=== PATIENT | male | born 1945 | race Hispanic/Latino ===

== ENCOUNTER → 2023-08-11 | Day surgery (SDC) | payer MEDICARE ==
[2023-08-09 09:06] LABS: BASOPHILS # (AUTO) 0.1 (0.0-0.1); EOSINOPHILS # (AUTO) 0.3 (0.0-0.4); EOSINOPHILS % 5.4 % (0.0-6.0); HEMATOCRIT 41.4 % (38.2-49.6); HEMOGLOBIN 14.1 g/dL (14.0-18.0); LYMPHOCYTES # (AUTO) 1.7 (1.0-3.2); LYMPHOCYTES % 33.3 % (18.0-39.1); MEAN CORPUSCULAR HEMOGLOBIN 30.5 pg (28-32); MEAN CORPUSCULAR HGB CONC 34.1 g/dL (31-35); MEAN CORPUSCULAR VOLUME 89.4 fL (81-99); MONOCYTES # (AUTO) 0.6 (0.2-0.8); NEUTROPHILS # (AUTO) 2.5 (2.1-6.9); NEUTROPHILS % 49.1 % (38.7-80.0); PLATELET COUNT 194 x10e3/uL (140-360); RED BLOOD COUNT 4.63 x10e6/uL (4.3-5.7); RED CELL DISTRIBUTION WIDTH 13.5 % (11.7-14.4); WHITE BLOOD COUNT 4.99 x10e3/uL (4.8-10.8)
[~2023-08-11] MED LIST: CLOTRIMAZOLE-BE30 ML TOP; FLONASE ALLERG9.9 ML INH; LACTATED RINGER'S 1,000 ML ONE; LIDOCAINE HCL 2% LOCAL INJ 5 ML SDV VIAL INJ ONE; PROPOFOL IV EMULSION 10 MG/ML 20 ML VIAL ONE; PROPOFOL IV EMULSION 50 ML IV ONE
[2023-08-11 10:30] VITALS: BP 149/98; PULSE 72; RESP 18; TEMP 97.2; O2SAT 99
== END | disposition home or self-care (01) ==
LOC: OR 06:00
PROVIDERS: ATTEND Internal Medicine Gastroenterology
DX: Z12.11 Encounter for screening for malignant neoplasm of colon (principal); K51.40 Inflammatory polyps of colon without complications; E03.9 Hypothyroidism, unspecified; E78.00 Pure hypercholesterolemia, unspecified; R41.3 Other amnesia; S06.9XAS Unspecified intracranial injury with loss of consciousness status unknown, sequela; K74.00 Hepatic fibrosis, unspecified; K57.90 Diverticulosis of intestine, part unspecified, without perforation or abscess without bleeding; E73.9 Lactose intolerance, unspecified; Z79.899 Other long term (current) drug therapy; Z01.812 Encounter for preprocedural laboratory examination; Z01.810 Encounter for preprocedural cardiovascular examination
CPT/HCPCS: 36415; 45384; 85025; 88305; 93005; J2001; J2704 ×2; J7121

== ENCOUNTER → 2024-09-10 | Day surgery (SDC) | payer MEDICARE ==
[2024-09-09 09:38] LABS: BASOPHILS % 0.7 % (0.0-1.0); EOSINOPHILS # (AUTO) 0.2 (0.0-0.4); EOSINOPHILS % 4.2 % (0.0-6.0); HEMATOCRIT 47.3 % (38.2-49.6); LYMPHOCYTES # (AUTO) 1.8 (1.0-3.2); LYMPHOCYTES % 32.5 % (18.0-39.1); MEAN CORPUSCULAR HEMOGLOBIN 30.5 pg (28-32); MEAN CORPUSCULAR HGB CONC 31.7 g/dL (31-35); MEAN CORPUSCULAR VOLUME 96.1 fL (81-99); MONOCYTES # (AUTO) 0.5 (0.2-0.8); MONOCYTES % 9.7 % (4.4-11.3); NEUTROPHILS # (AUTO) 2.9 (2.1-6.9); NEUTROPHILS % 52.7 % (38.7-80.0); PLATELET COUNT 212 x10e3/uL (140-360); RED BLOOD COUNT 4.92 x10e6/uL (4.3-5.7); WHITE BLOOD COUNT 5.48 x10e3/uL (4.8-10.8)
[~2024-09-10] MED LIST changes: +FENTANYL CITRATE/PF 100MCG/2 ML INJ ONE; +MIDAZOLAM HCL 2 MG/2 ML VIAL ONE; +ONDANSETRON HCL INJ 2MG/ML 2ML 2 MG/ML VIAL ONE; +PROPOFOL IV EMULSION 100 ML IV ONE; -PROPOFOL IV EMULSION 50 ML IV ONE
[2024-09-10 12:15] VITALS: BP 137/89; PULSE 67; RESP 16; TEMP 97.9; O2SAT 98
== END | disposition home or self-care (01) ==
LOC: OR 08:48
PROVIDERS: ATTEND Internal Medicine Gastroenterology
DX: Z12.11 Encounter for screening for malignant neoplasm of colon (principal); D12.2 Benign neoplasm of ascending colon; D12.3 Benign neoplasm of transverse colon; K64.8 Other hemorrhoids; M81.0 Age-related osteoporosis without current pathological fracture; E03.9 Hypothyroidism, unspecified; R41.3 Other amnesia; K74.00 Hepatic fibrosis, unspecified; E73.9 Lactose intolerance, unspecified; R03.0 Elevated blood-pressure reading, without diagnosis of hypertension; E78.5 Hyperlipidemia, unspecified; M06.9 Rheumatoid arthritis, unspecified; Z01.810 Encounter for preprocedural cardiovascular examination; Z01.812 Encounter for preprocedural laboratory examination; Z91.81 History of falling
CPT/HCPCS: 36415; 45380; 45384; 85025; 88305; 93005; J2003; J2250; J2405; J2704 ×2; J3010; J7121

== ENCOUNTER 2025-06-21 16:24 | Inpatient (IN) | payer MEDICARE ==
[~2025-06-21] VITALS: Ht 165.1 cm; Wt 79.1 kg
[~2025-06-21 16:24] MED LIST changes: -FENTANYL CITRATE/PF 100MCG/2 ML INJ ONE; -LACTATED RINGER'S 1,000 ML ONE; -LIDOCAINE HCL 2% LOCAL INJ 5 ML SDV VIAL INJ ONE; -MIDAZOLAM HCL 2 MG/2 ML VIAL ONE; -ONDANSETRON HCL INJ 2MG/ML 2ML 2 MG/ML VIAL ONE; -PROPOFOL IV EMULSION 10 MG/ML 20 ML VIAL ONE; -PROPOFOL IV EMULSION 100 ML IV ONE
[2025-06-21 16:35] VITALS: PULSE 67; RESP 18; TEMP 98
[2025-06-21] MEDS ORDERED: IOPAMIDOL 370 MG/ML 100 ML INFUS..BTL INJ ONE (17:00)
[2025-06-21] MEDS: FAMOTIDINE 20 MG/2 ML VIAL IV STA (17:32)
[2025-06-21] MEDS: SODIUM CHLORIDE 0.9% 1000ML 1,000 ML IV SCH ×2 (17:32→19:45)
[2025-06-21] MEDS ORDERED: LEVOTHYROXINE50 MCG PO (18:10)
[2025-06-21] MEDS ORDERED: BENEFIBER1 EAC1 (18:10)
[2025-06-21] MEDS ORDERED: GLIPIZIDE ER5 MG PO (18:10)
[2025-06-21] MEDS ORDERED: CILOSTAZOL50 MG PO (18:10)
[2025-06-21] MEDS ORDERED: IBUPROFEN600 MG PO (18:10)
[2025-06-21] MEDS ORDERED: NEURONTIN300 MG PO (18:10)
[2025-06-21] MEDS ORDERED: HYDROXYZINE HCL10 MG PO (18:10)
[2025-06-21] MEDS ORDERED: ASPIRIN EC81 MG PO (18:10)
[2025-06-21] MEDS: KETOROLAC TROMETHAMINE 30 MG/ML VIAL IV STA (19:34)
[2025-06-21 22:56] VITALS: BP 122/63; PULSE 60; RESP 18; TEMP 98; O2SAT 98
[2025-06-21 23:25] VITALS: BP 122/63; PULSE 60; RESP 18; TEMP 98; O2SAT 98
[2025-06-22] VITALS (7 sets, daily range): BP systolic 112–130; BP diastolic 62–79; PULSE 52–60; RESP 17–22; TEMP 97.4–98.4; O2SAT 98–99
[2025-06-22 05:40] LABS: BASOPHILS % 0.8 % (0.0-1.0); EOSINOPHILS % 6.6 % (0.0-6.0); LYMPHOCYTES % 25.8 % (18.0-39.1); MONOCYTES % 8.9 % (4.4-11.3); NEUTROPHILS % 57.9 % (38.7-80.0); RED CELL DISTRIBUTION WIDTH 13.9 % (11.7-14.4)
[2025-06-22 06:20] LABS: EST GLOMERULAR FILTRATION RATE 91.0 ML/MIN (>=60)
[2025-06-23] VITALS (7 sets, daily range): BP systolic 114–125; BP diastolic 61–79; PULSE 51–85; RESP 17–18; TEMP 97.7–98.8; O2SAT 98–100
[2025-06-23 04:37] LABS: BASOPHILS % 1.4 % (0.0-1.0); EOSINOPHILS % 7.7 % (0.0-6.0); LYMPHOCYTES % 30.9 % (18.0-39.1); MONOCYTES % 9.1 % (4.4-11.3); NEUTROPHILS % 50.7 % (38.7-80.0); RED CELL DISTRIBUTION WIDTH 14.0 % (11.7-14.4)
[2025-06-23 04:59] LABS: EST GLOMERULAR FILTRATION RATE 91.0 ML/MIN (>=60)
[2025-06-24] VITALS: BP 125/81; PULSE 61; RESP 18; TEMP 97.9; O2SAT 99
[2025-06-24 04:00] VITALS: BP 116/73; PULSE 61; RESP 18; TEMP 97.8; O2SAT 97
[2025-06-24 05:01] LABS: BASOPHILS % 0.9 % (0.0-1.0); EOSINOPHILS % 9.1 % (0.0-6.0); LYMPHOCYTES % 40.7 % (18.0-39.1); MONOCYTES % 10.1 % (4.4-11.3); NEUTROPHILS % 39.0 % (38.7-80.0); RED CELL DISTRIBUTION WIDTH 13.7 % (11.7-14.4)
[2025-06-24 05:27] LABS: EST GLOMERULAR FILTRATION RATE 85.0 ML/MIN (>=60)
[2025-06-24 07:24] LABS: HEPATITIS A ANTIBODY IGM (P) Negative; HEPATITIS B CORE IGM (P) Negative; HEPATITIS B SURFACE AG (P) Negative
[2025-06-24 09:56] VITALS: BP 133/85; PULSE 50; RESP 18; TEMP 98; O2SAT 100
[2025-06-24] MEDS ORDERED: SUCCINYLCHOLINE CHLORIDE 20 MG/ML 10ML VIAL ONE (10:39)
[2025-06-24] MEDS ORDERED: SEVOFLURANE INHAL SOLN 250 ML PEN BTL ONE (10:39)
[2025-06-24] MEDS ORDERED: ACETAMINOPHEN 1000 MG/100 ML 0 ML IV ONE (10:39)
[2025-06-24] MEDS ORDERED: SUGAMMADEX SODIUM 200 MG/2 ML VIAL IV ONE (10:39)
[2025-06-24] MEDS ORDERED: FENTANYL CITRATE/PF 100MCG/2 ML INJ ONE (10:39)
[2025-06-24] MEDS ORDERED: PROPOFOL IV EMULSION 10 MG/ML 20 ML VIAL ONE (10:39)
[2025-06-24] MEDS ORDERED: ROCURONIUM BROMIDE 1 ML IV ONE (10:39)
[2025-06-24] MEDS ORDERED: EPHEDRINE SULFATE INJ 50 MG/ML VIAL ONE (12:47)
[2025-06-24] MEDS: SODIUM CHLORIDE 0.9% 1000ML 1,000 ML IV SCH (13:45)
[2025-06-24] MEDS ORDERED: HYDROCODONE/APAP 7.5MG-325MG 1 EA TAB PO PRN (13:45)
[2025-06-24] MEDS: FENTANYL CITRATE/PF 100MCG/2 ML INJ ONE (15:02)
[2025-06-24 18:02] VITALS: BP_SYST 69; PULSE 63; RESP 20; TEMP 98.1; O2SAT 96
[2025-06-24 20:00] VITALS: BP 124/66; PULSE 58; RESP 18; TEMP 97; O2SAT 98
[2025-06-24 21:00] VITALS: BP 124/66; PULSE 58; RESP 18; TEMP 97; O2SAT 98
[2025-06-25 04:00] VITALS: BP 109/62; PULSE 61; RESP 18; TEMP 98.2; O2SAT 98
[2025-06-25 05:26] LABS: BASOPHILS % 0.2 % (0.0-1.0); EOSINOPHILS % 0.7 % (0.0-6.0); LYMPHOCYTES % 21.6 % (18.0-39.1); MONOCYTES % 7.9 % (4.4-11.3); NEUTROPHILS % 69.6 % (38.7-80.0); RED CELL DISTRIBUTION WIDTH 13.6 % (11.7-14.4)
[2025-06-25 05:59] LABS: EST GLOMERULAR FILTRATION RATE 88.0 ML/MIN (>=60)
[2025-06-25 08:00] VITALS: BP 109/62; PULSE 61; RESP 18; TEMP 98.2; O2SAT 98
[2025-06-25 08:29] VITALS: BP 120/69; PULSE 55; RESP 18; TEMP 98.6; O2SAT 95
[2025-06-25] MEDS: ONDANSETRON HCL INJ 2MG/ML 2ML 2 MG/ML VIAL IV PRN (10:03)
[2025-06-25] MEDS: Morphine 2mg Syringe 2 MG/ML SYR IV PRN (10:04)
[2025-06-25 14:22] VITALS: BP 127/74; PULSE 55; RESP 18; TEMP 98.2; O2SAT 97
[2025-06-25 17:06] VITALS: BP 116/91; PULSE 56; RESP 18; TEMP 98.1; O2SAT 98
== END 2025-06-25 18:25 | disposition home or self-care (01) | DRG 418 ==
LOC: FSED 16:34 → ERHOLD 19:35 → MED/SURG 21:46 → OBSVTOIN 06-23 07:59
PROVIDERS: ADMIT Internal Medicine; ATTEND Internal Medicine
PROC: 0FT44ZZ Resection of Gallbladder, Percutaneous Endoscopic Approach (ICD-10-PCS; principal; 2025-06-24 12:29)
DX: K80.20 Calculus of gallbladder without cholecystitis without obstruction (principal); F03.911 Unspecified dementia, unspecified severity, with agitation; E03.9 Hypothyroidism, unspecified; E11.9 Type 2 diabetes mellitus without complications; K76.0 Fatty (change of) liver, not elsewhere classified; N40.0 Benign prostatic hyperplasia without lower urinary tract symptoms; R74.8 Abnormal levels of other serum enzymes; Z79.82 Long term (current) use of aspirin; Z79.84 Long term (current) use of oral hypoglycemic drugs; Z79.890 Hormone replacement therapy
CPT/HCPCS: 36415; 74176; 74181; 76705; 80048; 80053; 80076; 81003; 82140; 82948; 83690; 84484; 85025; 88304; 93005; 96374; 99284; C1766; G0378; J0330; J1308; J1885; J2270; J2405; J2470; J2543; J7030; Q9967